=== PATIENT | female | born 1985 | race African-American/Black ===

== ENCOUNTER 2018-08-23 18:59 | Emergency (ER) | payer OTHER ==
[~2018-08-23] VITALS: Ht 170.2 cm; Wt 81.8 kg
[2018-08-23 22:16] VITALS: BP 132/94
== END 2018-08-23 22:59 | disposition home or self-care (01) ==
LOC: EMS 19:00
DX: Z01.419 Encounter for gynecological examination (general) (routine) without abnormal findings (principal); F17.210 Nicotine dependence, cigarettes, uncomplicated